=== PATIENT | male | born 1960 | race Caucasian/White ===

== ENCOUNTER 2017-12-02 11:39 | Observation (INO) | payer BC ==
[2017-12-02] MEDS ORDERED: ASPIRIN TABLET 325 MG TAB ONE (11:48)
[2017-12-02] MEDS ORDERED: SODIUM CHLORIDE 0.9% (FLUSH) 10 ML SYG IV PRN ×2 (12:02→16:45)
[2017-12-02] MEDS ORDERED: ASPIRIN TABLET 325 MG TAB PO ONE (12:02)
--- NOTE | 2017-12-02 12:14 | ED.PDOC ---
History of Present Illness - General Chief Complaint: Chest Pain/FL Stated Complaint: CHEST PAIN, PALPITATIONS Time Seen by Provider: 12/02/17 12:01 Source: patient Exam Limitations: no limitations - History of Present Illness Initial Comments: PT REPORTS ONSET OF CHEST PRESSURE AND PALPITATIONS THAT OCCURRED WHILE DRIVING TODAY. PT STATES THAT SYMPTOMS WERE ACCOMPANIED BY NUMBNESS AND TINGLING OF HIS LEGS AND HANDS. PT DENIES SYMPTOMS CURRENTLY. Timing/Duration: resolved prior to arrival Severity: moderate Location: substernal Activities at Onset: none Prior Chest Pain/Cardiac Workup: stress test - 5 YEARS AGO Improving Factors: nothing Worsening Factors: nothing Nitro Today/Relief: no nitro taken today Aspirin Treatment Today: no aspirin today Associated Symptoms: chest pain Allergies/Adverse Reactions: Allergies NO KNOWN ALLERGY Allergy (Verified 12/02/17 11:59) Review of Systems - Review of Systems Constitutional: Denies: chills, fever EENTM: Denies: nose congestion, throat pain Respiratory: Denies: cough, short of breath Cardiology: States: see HPI, chest pain, palpitations Gastrointestinal/Abdominal: Denies: diarrhea, nausea, vomiting Genitourinary: Denies: dysuria Musculoskeletal: Denies: joint pain, joint swelling Skin: Denies: dryness, lesions Neurological: States: see HPI, numbness, paresthesia. Denies: headache Endocrine: States: no symptoms reported Past Medical History (General) - Patient Medical History Hx Seizures: No Hx Stroke: No Hx Dementia: No Hx Asthma: No Hx of COPD: No Hx Cardiac Disorders: No Hx Congestive Heart Failure: No Hx Pacemaker: No Hx Hypertension: Yes Hx Thyroid Disease: No Hx Diabetes: No Hx Gastroesophageal Reflux: No Hx Renal Disease: No Hx Cancer: No Hx of HIV: No Hx Hepatitis C: No Hx MRSA: No Surgical History: no surgical history - Vaccination History Hx Tetanus, Diphtheria Vaccination: No Hx Influenza Vaccination: No Hx Pneumococcal Vaccination: No Immunizations Up to Date: No - Social History Hx Tobacco Use: Yes Hx Chewing Tobacco Use: No Hx Alcohol Use: No Hx Substance Use: No Hx Substance Use Treatment: No Hx Depression: No Feels Threatened In Home Enviroment: No Feels Threatened In a Relationship: No Hx Physical Abuse: No Hx Emotional Abuse: No Hx Suspected Abuse: No - Activities of Daily Living Hospice Agency (if applicable):: None - Female History Patient is a Female of Child Bearing Age (10 -59 yrs old): No Patient : No Family Medical History - Family History Mother Family History: Unknown Physical Exam - Physical Exam General Appearance: Alert, No apparent distress, Well Developed, Well Groomed, Well Hydrated Eyes, Ears, Nose, Throat Exam: normal ENT inspection Neck: full range of motion, normal inspection Respiratory: lungs clear, normal breath sounds, no respiratory distress Cardiovascular/Chest: regular rate, rhythm, no edema, no murmur Gastrointestinal/Abdominal: non tender, soft Extremity: normal range of motion, non-tender, normal inspection Neurologic: alert, normal mood/affect, oriented x 3 Skin Exam: normal color, warm/dry Progress - Progress Progress: 12/02/17 13:56 PT RESTING COMFORTABLY ON RE-EVAL. NO RETURN OF CHEST DISCOMFORT. PT DOES REPORT SOME PARESTHESIAS TO THE HANDS STILL. LABS AND DIAGNOSTICS DISCUSSED. - Results/Orders Results/Orders: 12/02/17 12:02 IV Care:Saline Lock per Protoc QSHIFT Telemetry .ONCE Sodium Chloride 0.9% (Flush) [Saline Flush Syringe] 10 ml IV PRN PRN EKG Stat Pulse Ox Stat 12/02/17 13:17 Sodium Chloride 0.9% 1000ML [Ns 1000 ml] 1,000 ml IVS ONCE Laboratory Results - last 24 hr 12/02/17 12:00 WBC 7.5 RBC 5.18 Hgb 16.6 Hct 47.7 MCV 92.1 MCH 32.0 H MCHC 34.8 RDW 13.8 Plt Count 218 MPV 9.0 Absolute Neuts (auto) 4.60 Absolute Lymphs (auto) 1.50 Absolute Monos (auto) 1.20 H Absolute Eos (auto) 0.10 Absolute Basos (auto) 0.10 Neutrophils % 61.9 Lymphocytes % 19.9 L Monocytes % 15.7 H Eosinophils % 1.2 Basophils % 1.3 PT 9.9 INR 0.99 PTT (SP) 23.4 Sodium 140 Potassium 3.3 L Chloride 100 L Carbon Dioxide 28 Anion Gap 15.3 BUN 20 H Creatinine 1.05 BUN/Creatinine Ratio 19.0 Random Glucose 129 H Serum Osmolality 283.7 Calcium 9.8 Magnesium 2.0 Creatine Kinase 264 H* CK-MB (CK-2) 4.4 CK-MB (CK-2) % 1.67 Troponin I < 0.02 B-Natriuretic Peptide 13.0 - EKG/XRAY/CT EKG: Sinus - @67BPM, NL INTERVALS, NL AXIS, no ST T wave changes - NO OLD EKG FOR COMPARISON. CT Ordered: No CT Interpretation Call Back: No Departure - Departure Clinical Impression: Chest pain, Dehydration, Hypokalemia, Paresthesia Time of Disposition: 15:03 Disposition: Admit Patient Condition: Fair Departure Forms: ED Discharge - Pt. Copy, Patient Portal Self Enrollment Instructions: DI for Chest Pain Decision To Admit - Decistion To Admit Decision to Admit Reason: Admit from ER Decision to Admit Date: 12/02/17 Decision to Admit Time: 15:03 - CASE DISCUSSED WITH OCTAVIANO HUNTER NP WHO AGREES TO ADMIT
--- NOTE | 2017-12-02 12:33 | RAD ---
EXAM DESCRIPTION: Chest,1 View CLINICAL HISTORY: CHEST PAIN COMPARISON: None. IMPRESSION: Single AP portable upright view of the chest shows cardiac silhouette and pulmonary vasculature to be within normal limits. Lungs are normally aerated and clear. No obvious pleural effusion or pneumothorax is seen. Electronically signed by: Chaparro Nunez MD 12/02/2017 12:32 PM CDT
[2017-12-02] MEDS ORDERED: SODIUM CHLORIDE 0.9% 1000ML 1,000 ML IVS ONE (13:17)
[2017-12-02] MEDS ORDERED: POTASSIUM BICARBONATE 25 MEQ TAB PO ONE (13:33)
--- NOTE | 2017-12-02 16:08 | HP ---
SUPERVISING PHYSICIAN: Florentino Lebron M.D. CHIEF COMPLAINT: Chest pressure. HISTORY OF PRESENT ILLNESS: This is a 56 year-old male patient with a history of hypertension who was driving today and developed some bilateral hand numbness and tingling as well as numbness and tingling in his feet. He also had some chest pressure or some dyspnea. For that reason he pulled over and came to the Emergency Room. He is actually from the [facility] and his primary care provider is in [place]. He states that they have actually changed his medications a couple of times trying to get his blood pressure under control, but at this time he came to the Emergency Room for the above symptoms. In the Emergency Room, his EKG was normal and his cardiac enzymes were negative. He states that 5 years ago he had a stress test which was normal. In the E. R., his blood pressure was elevated at 165/87 and has gotten as high as 170/85 here on the unit. He states that at home it has gone anywhere from 148 systolically to the 190s systolically. Anyhow, due to the chest pain he was admitted for chest pain observation. At time of examination, the patient is not having any chest pain and no chest pressure. He is still having a little bit of paresthesias in his hands but the feet is resolved. PAST MEDICAL HISTORY: 1. Hypertension. 2. Hyperlipidemia. 3. Likely osteoarthritis. PAST SURGICAL HISTORY: 1. Wound debridement on the left lopez for an infection. CURRENT MEDICATIONS: 1. Simvastatin HCTZ. 2. Ranitidine. 3. Possibly Lisinopril. 4. Bupropion. ALLERGIES: NO KNOWN DRUG ALLERGIES. FAMILY HISTORY: Mother had hypertension, lung cancer and peripheral arterial disease. Father had angina and is still alive. SOCIAL HISTORY: The patient smokes a pack per day for 40 years. He occasionally drinks beer and when he does, he drinks about a 6 pack at a time. No illegal drugs. REVIEW OF SYSTEMS: CONSTITUTIONAL: No fever or chills. No recent weight loss or weight gain. HEENT: No headaches. He says in the mornings he does have some blurry vision but it resolves. No nasal drainage. No throat pain. RESPIRATORY: No cough, hemoptysis or pleuritic chest pain. CARDIOVASCULAR: Other than history of present illness, he has not had any chest pain. No palpitations. No peripheral edema. GASTROINTESTINAL: No nausea, vomiting, diarrhea or constipation or abdominal pain. Does have problems with heartburn. GENITOURINARY: No dysuria, frequency or flank pain. HEMATOLOGIC: No easy bruising or transfusion reaction. MUSCULOSKELETAL: He has some stiffness in the mornings but no overt joint pain or joint swelling. ENDOCRINE: No polydipsia, polyuria or polyphagia. No heat or cold intolerance NEUROLOGIC: Other than the paresthesias described in the history of present illness, he has not had any syncope, seizures or dizziness. PHYSICAL EXAMINATION: VITAL SIGNS: Blood pressure 170/85, heart rate 60, respiratory rate 18, temperature 98.3, oxygen saturation 98%. GENERAL: Mr. Mendez is a 56 year-old male patient in no active distress. HEENT: Head is normocephalic and atraumatic. Eyes: Pupils are equal and reactive. Nose: No drainage. Throat: Moist mucosa. NECK: Supple. Midline trachea. No jugular venous distention. CHEST: Symmetrical with equal rise and fall of the chest with inspiration and expiration. Lung sounds are clear to auscultation bilaterally. CARDIOVASCULAR: Regular rate and rhythm. Normal S1 and S2. ABDOMEN: Soft. Positive bowel sounds. GENITOURINARY: Exam is deferred. EXTREMITIES: Lower extremities with no edema. Pulses are 2+. Capillary refill is less than 2 seconds. NEUROLOGIC: The patient is alert and oriented. Moves all extremities. Extraocular movements are intact. LABORATORY: Labs are reviewed via the EMR. CBC is unremarkable. Coagulation studies are normal. Chemistry shows a low potassium at 3.3 but it has already been replaced in the Emergency Room. CK was 264. Cardiac enzymes were negative. BNP was normal. Chest x-ray done showed no acute cardiopulmonary process. ASSESSMENT: 1. Chest pain rule out ACS. 2. Uncontrolled hypertension. 3. Hyperlipidemia. PLAN: He will be admitted with the chest pain protocol with serial cardiac enzymes as well as EKGs. Will review his home medications and restart the ones that need to be started. If everything remains negative, he will likely go home in the morning with instructions to followup with his primary care physician as well as reestablish with a television news producer to get another stress test or a different cardiac workup at that time. #[id number] [facility]
[2017-12-02] MEDS ORDERED: NITROGLYCERIN 0.4 MG 25 EA TAB SL PRN (16:45)
[2017-12-02] MEDS ORDERED: ACETAMINOPHEN 325 MG TAB PO PRN (16:45)
[2017-12-02] MEDS ORDERED: MORPHINE SULFATE INJ 10 MG/ML VIAL IV PRN (16:45)
[2017-12-02] MEDS ORDERED: IV SET AND CAP CHANGE INJ INJ SCH (17:00)
[2017-12-02] MEDS: SODIUM CHLORIDE 0.9% (FLUSH) 10 ML SYG IV SCH (21:25)
[2017-12-02] MEDS ORDERED: TEMAZEPAM 15 MG CAP PO PRN (23:50)
[2017-12-03 05:38] VITALS: TEMP 97.6
[2017-12-03] MEDS ORDERED: Wellbutrin XL 150 MG TAB PO ONE (08:29)
[2017-12-03] MEDS ORDERED: hydroCHLOROthiazide 25 MG TAB ONE (08:29)
[2017-12-03] MEDS ORDERED: SIMVASTATIN 20 MG TAB ONE (08:29)
[2017-12-03] MEDS ORDERED: NON-FORMULARY MEDICATION 1 EA MIS (Olmesartan Medoxomil [Benicar] 20 MG) PO SCH (09:00)
[2017-12-03] MEDS ORDERED: ASPIRIN TABLET 325 MG TAB PO SCH (09:00)
[2017-12-03] MEDS ORDERED: hydroCHLOROthiazide 25 MG TAB PO SCH (09:00)
[2017-12-03] MEDS ORDERED: Wellbutrin XL 150 MG TAB PO SCH (09:00)
[2017-12-03] MEDS ORDERED: NON-FORMULARY MEDICATION 1 EA MIS (Simvastatin [Simvastatin] 40 MG) PO SCH (09:00)
[2017-12-03] MEDS: SODIUM CHLORIDE 0.9% (FLUSH) 10 ML SYG IV SCH (09:04)
[2017-12-03 09:14] VITALS: BP 180/95; O2SAT 99
--- NOTE | 2017-12-03 10:58 | DS ---
SUPERVISING PHYSICIAN: Florentino Lebron MD ADMISSION DIAGNOSIS: 1. Chest pain, rule out acute coronary syndrome. 2. Uncontrolled hypertension. 3. Hyperlipidemia. DISCHARGE DIAGNOSIS: 1. Chest pain, rule out acute coronary syndrome. 2. Uncontrolled hypertension. 3. Hyperlipidemia. HOSPITAL COURSE: This is a 56-year-old male who was driving and developed bilateral hand numbness and tingling as well as numbness and tingling in his feet which was associated which with some chest pressure and dyspnea. He was driving through the area, so came to the Emergency Room here. He was evaluated for cardiac workup in the Emergency Room which showed a normal EKG as well as normal cardiac enzymes. He was referred for admission for chest pain rule out. Upon further questioning, the patient has been having problems with his blood pressure. It was as high as 170/85 here on the Unit. He states he has had some adjustments to his blood pressure medicines recently. He did not know his exact medication, so he sent his family home. Throughout the admission, his blood pressure improved a little bit and also his cardiac enzymes remained negative. Come to find out, he basically was taking bupropion thinking it was his blood pressure medicine and has not taken his olmesartan in about a week. This morning, he is chest pain free and once again his cardiac enzymes are negative. I discussed with him the importance of taking his medicines and he said as soon as he gets home, he is going to take his blood pressure medicine. I also encouraged him to make a followup appointment with his sales exhibitor in [place]. It has been a while since he has seen him although he had a normal stress test 5 years ago. He will be discharged on no new medications. Activity is as tolerated. Diet as per previous diet. Recommendation for followup with his sales exhibitor. #[id number] [facility]
[2017-12-03] MEDS ORDERED: SIMVASTATIN 20 MG TAB PO SCH (21:00)
== END 2017-12-03 09:30 | disposition home or self-care (01) ==
LOC: ER 11:39 → MS 16:06
PROVIDERS: ADMIT Nurse Practitioner; ATTEND Nurse Practitioner
DX: R07.89 Other chest pain (principal); I10 Essential (primary) hypertension; E78.5 Hyperlipidemia, unspecified; E86.0 Dehydration; E87.6 Hypokalemia; R20.2 Paresthesia of skin; R06.00 Dyspnea, unspecified; F17.210 Nicotine dependence, cigarettes, uncomplicated; Z79.899 Other long term (current) drug therapy; Z82.49 Family history of ischemic heart disease and other diseases of the circulatory system; Z80.1 Family history of malignant neoplasm of trachea, bronchus and lung
CPT/HCPCS: J7030; 85379; 82553 ×3; 80061; 36415 ×4; 82550 ×3; 80048; 85025; 85730; 85610; 84484 ×4; 83880; 71045; 99285; 93005 ×3; G0378